=== PATIENT | male | born 1940 | race Caucasian/White ===

== ENCOUNTER 2024-08-10 09:23 | Emergency (ER) | payer MEDICARE ==
[~2024-08-10] VITALS: Ht 175.3 cm; Wt 74.8 kg
[2024-08-10 09:31] VITALS: TEMP 97.8
[2024-08-10] MEDS ORDERED: ELIQUIS5 MG PO (09:42)
[2024-08-10] MEDS ORDERED: HYDROCODONE-AC473 M1 PO (09:42)
[2024-08-10 10:55] VITALS: PULSE 56; RESP 18; O2SAT 100
== END 2024-08-10 10:55 | disposition home or self-care (01) ==
LOC: ER 09:33
DX: S00.03XA Contusion of scalp, initial encounter (principal); W00.0XXA Fall on same level due to ice and snow, initial encounter; Y93.01 Activity, walking, marching and hiking; Y92.89 Other specified places as the place of occurrence of the external cause; I48.91 Unspecified atrial fibrillation; Z79.01 Long term (current) use of anticoagulants; M48.061 Spinal stenosis, lumbar region without neurogenic claudication
CPT/HCPCS: 70450; 72125; 99283